=== PATIENT | male | born 1985 | race Caucasian/White ===

== ENCOUNTER 2016-11-26 16:49 | Emergency (ER) | payer BC, OTHER ==
[2016-11-26 17:03] VITALS: BP 134/88
--- OUTSIDE RECORDS SUMMARY | 2016-11-26 17:32 | XMS REPORT | Continuity of Care Document ---
:1985 Author Organization [employer] [place] [address] Care Team Providers Name Role Phone Unavailable Primary Care Provider Unavailable Source Comments This disclosure is being made pursuant to the [employer] program and maynot contain all information available regarding this patient.[employer] Active Allergies and Adverse Reactions Not on File Current Medications Be aware that medications may not be up to date as of this document. Alwaysverify current medications with the patient. Not on file Active Problems Not on file Social History Tobacco Use Types Packs/Day Years Used Date Never Assessed Plan of Care Health Maintenance Due Date Last Done Comments Retired-Pertussis Vaccine Adult 2004 Retired-Tetanus Vaccine Adult 2004 Retired-INFLUENZA VACCINE 06/07/2015 Results from Last 3 Months Not on file
--- NOTE | 2016-11-26 17:37 | ERNOTE ---
Medical Problem HPI - Narrative Date of Service: 11/26/16 - General Chief Complaint: Laceration Time Seen by Provider: 11/26/16 17:22 Source: patient, RN notes reviewed Exam Limitations: no limitations - Immun/Allergies/Home Medications Immunizations: IMMUNIZATION HX History of Influenza Vaccine Yes Allergies/Adverse Reactions: Allergies No Known Allergies Allergy (Unverified 11/26/16 17:03) Home Medications: HOME MEDICATIONS NK [No Home Medication] 11/26/16 [Last Taken Unknown] - History of Present History Narrative: 31 y/o male ambulatory to ED with laceration to dorsum of left 2nd MCP joint. 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 Date (Duration): 11/26/16 Time (Timing): 16:30 Severity: mild Review of Systems - Review of Systems Constitutional: Absent: recent illness, fever, chills EYE: Present: no symptoms reported ENT: Present: no symptoms reported Respiratory: Present: no symptoms reported Cardiology: Present: no symptoms reported Gastrointestinal/Abdominal: Present: no symptoms reported Genitourinary: Present: no symptoms reported Musculoskeletal: Present: joint pain. Absent: joint swelling Skin: Absent: lesions, lumps, change in color Neurological: Absent: weakness, numbness, tingling Endocrine: Present: no symptoms reported Hematologic/Lymphatic: Absent: easy bruising, easy bleeding Psych: Present: anxiety - Patient's Past Medical History Patient History - Medical: No pertinent hx Patient History - Cardiac/Respiratory: No pertinent hx Patient History - Cancer: No Hx of Cancer Patient History - Surgical Procedures: Noncontributory Patient History - Other: None - Social History Living Situations: home Psych History: No pertinent hx Smoking Status: Current every day smoker Alcohol Use: none Drug Use: none - Immunizations Immunizations Up to Date: Yes - last tetanus 3 or 4 yrs ago History of Influenza Vaccine: Yes Physical Exam - Physical Exam General Appearance: Present: wd/wn, alert, no apparent distress, anxious Ears, Nose, Throat: Present: hearing grossly normal Respiratory: Present: no respiratory distress, no accessory muscle use Cardiovascular/Chest: Present: normal peripheral pulses Peripheral Pulses: N=norm/S=strong/W=weak/B=bound/A=absent: Radial (L): Strong Extremity Exam: Present: no edema, normal range of motion, other - tenderness with palpation to area surrounding laceration to dorsal surface of left 2nd MCP joint. Absent: joint swelling Neurological Exam: Present: alert, oriented, normal mood/affect, no motor/ sensory deficits ED Progress - Vital Signs Patient's Vital Signs:: I have reviewed the patient's vital signs. Vital Signs: Vital Signs 11/26/16 16:57 Temperature 36.4 C L Pulse Rate 99 Respiratory 12 Rate Blood Pressure 134/88 O2 Sat by Pulse 97 Oximetry - X-Ray X-Ray #1 X-Ray: hand - Left Interpretation: Reviewed by me X-ray Comments: no acute osseous abnormality or radiopaque foreign body - Progress/Reassessment Chief Complaint: Laceration Progress:: Improved Procedures Left Proximal Dorsal Hand 2nd Digit Anesthesia: 1% Lidocaine Length of Repair/Wound (cm): 2.5 Wound's Depth/Shape: superficial, linear Wound Explored: clean, to base, in bloodless field, no foreign body Wound Intervention: other - hand soaked in warm water with chlorhexidine, wound prepped with betadine Distal NVT: neuro/vasc intact, no tendon injury Wound Repaired With: sutures Suture Size/Type: nylon Number of Sutures: 5 Layer Closure: Simple Wound Dressing: sterile dressing applied, splint applied Complications: Pt spencer procedure well Departure - Departure Clinical Impression: Laceration of index finger of left hand without complication Qualifiers: Encounter type: initial encounter Qualified Code(s): S61.211A - Laceration without foreign body of left index finger without damage to nail, initial encounter Disposition: Home Follow Up Needed Condition: Good Instructions: Sutured Wound Care, [id number] Additional Instructions: Keep dressing in place and dry for 48 hours Can then wash gently with soap and water - cover with antibiotic ointment and bandage as needed Wear splint until sutures are removed Have sutures removed in 10 days Referrals: Lena Mares, DIRECTOR OF CATH LAB [[facility]] -
[2016-11-26] MEDS ORDERED: LIDOCAINE HCL 20 ML VIAL ONE (18:03)
== END 2016-11-26 18:37 | disposition home or self-care (01) ==
LOC: ER 16:49
PROC: 0HQGXZZ Repair Left Hand Skin, External Approach (ICD-10-PCS; principal; 2016-11-26)
PROC: 2W3KX1Z Immobilization of Left Finger using Splint (ICD-10-PCS; 2016-11-26)
DX: S61.211A Laceration without foreign body of left index finger without damage to nail, initial encounter (principal); Z72.0 Tobacco use; X58.XXXA Exposure to other specified factors, initial encounter; Y93.89 Activity, other specified; Y92.63 Factory as the place of occurrence of the external cause; Y99.0 Civilian activity done for income or pay